=== PATIENT | female | born 1960 | race Caucasian/White ===

== ENCOUNTER 2023-10-30 16:13 | Outpatient (RCR) | payer BC, SELFPAY | END 2023-10-30 23:59 | disposition home or self-care (01) | LOC: CRHB 16:13 | PROVIDERS: ATTENDING PHYSICIAN Internal Medicine Cardiovascular Disease; FAMILY PHYSICIAN Nurse Practitioner Adult Health | DX: Z95.4 Presence of other heart-valve replacement (principal) | CPT/HCPCS: 93797; 93798 ==

== ENCOUNTER 2023-11-20 16:39 | Emergency (ER) | payer BC, SELFPAY ==
[2023-11-20] VITALS (11 sets, daily range): BP systolic 101–127; BP diastolic 65–82; BMI 19.7
[2023-11-20 17:04] LABS: % Basophils 1.7 % (0-2); % Eosinophils 8.1 % (0-6); % Immature Granulocytes 0.1 % (0-0.5); % Lymphocytes 33.2 % (20.5-51.1); % Monocytes 10.9 % (1.7-9.3); Absolute Basophils 0.1 10^3/uL (0-0.2); Absolute Eosinophils 0.7 10^3/uL (0-0.7); Absolute Lymphocytes 2.7 10^3/uL (1.2-3.4); Absolute Monocytes 0.9 10^3/uL (0.1-0.6); Absolute Neutrophils 3.8 10^3/uL (1.4-6.5); Hematocrit 39.5 % (37.0-47.0); Hemoglobin 12.3 g/dL (12.0-16.0); Mean Corp Hgb Conc. 31.1 g/dL (33.0-37.0); Mean Corpuscular Hgb 26.8 pg (27.0-31.0); Mean Corpuscular Volume 86.1 fL (81.0-99.0); Mean Platelet Volume 9.2 fL (7.4-10.4); Nucleated Red Blood Cells % 0 %; Platelet Count 386 10^3/uL (130-400); Red Blood Cell Count 4.59 10^6/uL (4.20-5.40); Red Cell Dist. Width 15.6 % (11.5-14.5); White Blood Cell Count 8.3 10^3/uL (4.8-10.8)
[2023-11-20 17:16] LABS: ALT (SGPT) 66 U/L (0-35); AST (SGOT) 73 U/L (14-36); Albumin 4.5 g/dl (3.5-5.0); Alkaline Phosphatase 142 U/L (38-126); Blood Urea Nitrogen 24 mg/dl (7-17); Carbon Dioxide 26 mmol/L (22-30); Chloride 101 mmol/L (98-107); Glucose 86 mg/dl (70-99); Magnesium 1.9 mg/dl (1.6-2.3); Potassium 5.2 mmol/L (3.5-5.1); Sodium 134 mmol/L (135-145); Total Bilirubin 0.7 mg/dl (0.2-1.3); Total Protein 8.1 g/dl (6.3-8.2); eGFR > 60.00
[2023-11-20 17:22] LABS: NT-proBNP 233 pg/ml
--- NOTE | 2023-11-20 17:39 | ED.GENMED ---
History of Present Illness
General
Chief Complaint: Heart Rate Problem
Source: patient and spouse
Time Seen by Provider: 11/20/23 17:08
Travel History
Have you had any contact with someone who has COVID-19?: No
Do you have any symptoms of coronavirus? Fever > 100 degrees, chills, cough, shortness of breath, sore throat, loss of taste or smell, muscle aches, or headache?: No
History of Present Illness
History of Present Illness:
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 She was at cardiac rehab today and after she got off the treadmill was noted to have a heart rate of
145. She got on the bike and her heart rate was 175. She was noted to be in A-fib. Patient had an episode of A-fib postoperatively briefly but otherwise no prior history. She says she feels 'fine'. She denies dyspnea, dizziness, chest pain or
pressure, palpitations, fever, chills, nausea, vomit, abdominal pain, neck pain, leg swelling, or other complaints. Patient is not anticoagulated.
Past History
Past History
ED Past Surgical History: Cardiac
Social History
Tobacco: Non-smoker
Alcohol: None
Drug: None
Personal:
Living: with family
Phy Exam
Physical Exam
Physical Exam:
GENERAL: Alert , in no apparent distress
EYE: pupils equal and reactive
NECK: Supple, no significant adenopathy.
ENT: o/p clr, mmm.
CARDIAC: Irregularly irregular, tachycardic
LUNGS: Clear breath sounds bilaterally, no acute respiratory distress,
ABDOMEN: Soft, without focal tenderness, no r/g, no cvat
NEUROLOGICAL: Alert and oriented, no focal neuro deficits
SKIN: Warm and dry, skin intact.
MUSCULOSKELETAL: No edema, well perfused.
PSYCH: Normal and appropriate interaction.
Scores
[id number] Score for Afib Stroke Risk
Age in Years (65=0, 65-74=1, >/=75=2): <65
Sex (Female=+1): Female
Congestive Heart Failure History (Yes=+1): Yes
Hypertension History (Yes=+1): No
Stroke/TIA/Thromboembolism History (Yes=+2): No
Vascular Disease History (Yes=+1): No
Diabetes Mellitus (Yes=+1): No
Score: 2
Anticoagulation Recommendations: Recommend anticoagulation (as validated in nonvalvular fib)
Course
Orders/Labs/Results
Orders:
Orders
11/20/23 16:47
Electrocardiogram (*1) Urgent
Reason for Study: Bradycardia / Tachycardia
EKG- Treatment ONCE
CR Chest - 2 Views Urgent
Comment:
Reason For Exam: tachycardia
11/20/23 16:53
Complete Blood Count/With Diff Urgent
Comprehensive Metabolic Panel Urgent
Free T4 Urgent
Magnesium Urgent
NT-proBNP Urgent
TSH Reflex To Free T4 Urgent
11/20/23 17:26
Diltiazem HCl [Cardizem] 20 mg IV NOW STA
11/20/23 17:44
Diltiazem HCl [Cardizem] 25 mg .ROUTE .STK-MED ONE
11/20/23 18:29
Diltiazem HCl [Cardizem] 25 mg IV NOW STA
11/20/23 18:44
0.9% Sodium Chloride 500 ml [Nss] 500 ml IV BOLUS
11/20/23 18:45
Apixaban [Eliquis] 5 mg PO NOW STA
Diltiazem [Cardizem] 60 mg PO NOW STA
11/20/23 19:03
Digoxin [Lanoxin] 250 mcg PO NOW STA
11/20/23 20:18
ECG [Electrocardiogram (*1)] Stat
Reason for Study: Palpitations
EKG- Treatment ONCE
Abnormal Lab Results
11/20/23
16:53
MCH 26.8 L pg
(27.0-31.0)
MCHC 31.1 L g/dL
(33.0-37.0)
RDW 15.6 H %
(11.5-14.5)
Absolute Monos (auto) 0.9 H 10^3/uL
(0.1-0.6)
Monocytes % 10.9 H %
(1.7-9.3)
Eosinophils % 8.1 H %
(0-6)
Sodium 134 L mmol/L
(135-145)
Potassium 5.2 H mmol/L
(3.5-5.1)
BUN 24 H mg/dl
(7-17)
AST 73 H U/L
(14-36)
ALT 66 H U/L
(0-35)
Alkaline Phosphatase 142 H U/L
(38-126)
TSH (Reflex) 0.23 L uIU/ml
(0.47-4.68)
11/20/23 16:53
11/20/23 16:53
Vital Signs
Initial and Last Documented VS:
Initial Vital Signs
Temp Pulse Resp BP Pulse Ox
97.8 F 129 20 127/77 98
11/20/23 16:42 11/20/23 16:42 11/20/23 16:42 11/20/23 16:42 11/20/23 16:42
Last Documented Vital Signs
Temp Pulse Resp BP Pulse Ox
97.8 F 92 19 111/67 96
11/20/23 16:42 11/20/23 20:45 11/20/23 20:45 11/20/23 20:30 11/20/23 20:45
*Critical Care Note
Total Time (30-74mins, 75-104mins- exclusive of procedures): Not Applicable
Update Note
Update Note:
Patient presents to the Emergency Department with _tachycardia
Number and Complexity of Problems Addressed at the Encounter
� Chronic conditions affecting care:
� Acute Exacerbation and/or Progression of Chronic Illness:
� Differential Diagnosis includes: But not limited to electrolyte disorder, sepsis, ACS, etc.
Amount and/or Complexity of Data to be Reviewed and Analyzed
� I performed an independent evaluation of and my interpretation is:
EKG: Read by me, tachycardia, A-fib, no acute ischemia
CT:
Xrays: Read by me, status post valve replacement, sternotomy wires noted, questionable atelectasis at right base
Laboratory Studies: Mild potassium elevation, nonspecific BUN elevation, blood sugar normal, nonspecific LFT elevation
Other:
� Review of other/old records reveals:
� Clinical information was obtained by an independent historian: who is bedside
� Prescriptions/Medications Considered but not given:
� Further testing considered but not performed:
Risk of Complications and/or Morbidity or Mortality of Patient Management
� Social determinants of health affecting care:
� Discussion with other providers (PCP, Hospitalists, Consultants, etc):
� Escalation of care including admission/observation vs risk of discharge considered: Case discussed with manager of pharmacy from [facility]� Aware of history, physical, etc. Agrees with anticoagulation. Agrees that patient is not
a candidate for cardioversion here given patient is asymptomatic with A-fib and unclear exactly how long she was in it. We will continue to attempt rate control. He is aware of the Cardizem that I gave recommends 0.25 mg of digoxin,'s IV fluids
and reevaluation. Patient updated.
8:21 PM reassessment, patient appears to be in a normal sinus rhythm. We will get a repeat ECG to confirm. Patient asymptomatic and stable. Plan is to prescribe DOAC, prompt cardiology follow-up regarding guidance of how long to continue DOAC,
further medication additions, etc. Discussed with patient importance of follow-up and reasons return to the ER
ED Attending Note
-
Portions of this chart may have been created with voice recognition software.� Occasional wrong word or��sound alike� substitutions may have occurred due to the inherent limitations of voice recognition software.
Discharge Plan
Departure
Patient Disposition: Home (Routine Discharge)
Date of Disposition: 11/20/23
Time of Disposition: 20:19
Patient with high blood pressure during this ER visit?: No
Condition: Good
Discharge Problem:
Atrial fibrillation
Instructions: Atrial Fibrillation (DC)
Prescriptions:
New
Eliquis 5 mg tablet
5 mg PO BID Qty: 60 0RF
No Action
simvastatin 20 mg Tablet
20 mg PO DAILY
aspirin 81 mg Capsule
81 mg PO DAILY
Referrals:
Marge Cullen CRNP [Family Provider] -
Activity Restrictions/Additional Instructions:
PLEASE FOLLOW-UP WITH YOUR HEARING THERAPIST THIS WEEK. YOU WILL NEED TO CONSIDER MEDICATION CHANGES/ADDITIONS, AND FURTHER EVALUATION. IF YOU DEVELOP DIZZINESS, CHEST PAIN, PALPITATIONS, SHORTNESS OF BREATH, OR OTHER WORRISOME SIGNS, PLEASE RETURN TO
THE ER IMMEDIATELY.
Interventions
Interventions:
*Risk Screen - Suicide Last Done: 11/20/23 16:42
*General Assessment Last Done: 11/20/23 16:42
*Neglect/Abuse Screening Last Done: 11/20/23 16:42
ED- Fall Risk Assessment Last Done: 11/20/23 17:27
*ED COVID-19 Vaccine History Last Done: 11/20/23 17:27
*Nursing Disposition Last Done: 11/20/23 20:51
ED- Cardiac Assessment Last Done: 11/20/23 17:27
ED- Pulmonary Assessment Last Done: 11/20/23 17:27
Discharge Date and Time
Discharge Date/Time: 11/20/23 21:01
[2023-11-20] MEDS: CARDIZEM 20 MG IV (17:44)
[2023-11-20 17:52] LABS: TSH Reflex To Free T4 0.23 uIU/ml (0.47-4.68)
[2023-11-20 18:23] LABS: Free T4 1.79 ng/dl (0.78-2.19)
[2023-11-20] MEDS: CARDIZEM 25 MG IV (18:29)
[2023-11-20] MEDS: NSS 500 IV (19:14)
[2023-11-20] MEDS: ELIQUIS 5 MG PO (19:17)
[2023-11-20] MEDS: CARDIZEM 60 MG PO (19:17)
[2023-11-20] MEDS: LANOXIN 250 MCG PO (19:18)
== END 2023-11-20 21:01 | disposition home or self-care (01) ==
LOC: EMR 16:39
PROVIDERS: EMERGENCY PHYSICIAN Emergency Medicine; FAMILY PHYSICIAN Nurse Practitioner Adult Health; OTHER PHYSICIAN Internal Medicine Cardiovascular Disease
DX: I48.91 Unspecified atrial fibrillation (principal)
CPT/HCPCS: 99284; 96374; 96375; 96361; 71046; 80053; 83735; 83880; 84439; 84443; 85025; 93005

== ENCOUNTER 2023-11-27 15:57 | Outpatient (RCR) | payer BC, SELFPAY | END 2023-11-27 23:59 | disposition home or self-care (01) | LOC: CRHB 15:57 | PROVIDERS: ATTENDING PHYSICIAN Internal Medicine Cardiovascular Disease; FAMILY PHYSICIAN Nurse Practitioner Adult Health | DX: Z95.4 Presence of other heart-valve replacement (principal) | CPT/HCPCS: 71046; 80053; 83735; 83880; 84439; 84443; 85025; 93005; 93798 ==

== ENCOUNTER 2025-08-23 06:53 | Day surgery (SDC) | payer BC, SELFPAY | END 2025-08-23 10:05 | disposition home or self-care (01) | LOC: CATH 06:53 | PROVIDERS: ATTENDING PHYSICIAN Nuclear Medicine Nuclear Cardiology; FAMILY PHYSICIAN Nurse Practitioner Family; OTHER PHYSICIAN Internal Medicine Cardiovascular Disease | DX: I48.0 Paroxysmal atrial fibrillation (principal); I34.0 Nonrheumatic mitral (valve) insufficiency; I50.9 Heart failure, unspecified; R18.8 Other ascites; R05.3 Chronic cough; R79.89 Other specified abnormal findings of blood chemistry; Z79.899 Other long term (current) drug therapy; Z79.01 Long term (current) use of anticoagulants; I70.0 Atherosclerosis of aorta; E78.5 Hyperlipidemia, unspecified; I47.20 Ventricular tachycardia, unspecified; I77.74 Dissection of vertebral artery; Z90.711 Acquired absence of uterus with remaining cervical stump; D15.1 Benign neoplasm of heart; I45.81 Long QT syndrome | CPT/HCPCS: 93312; 93320; 93325 ==

== ENCOUNTER 2025-09-01 07:59 | Day surgery (SDC) | payer BC, SELFPAY ==
[2025-08-18 09:21] VITALS: BMI 22.1
[2025-08-18 09:57] LABS: Hematocrit 44.3 % (37.0-47.0); Hemoglobin 14.9 g/dL (12.0-16.0); Mean Corp Hgb Conc. 33.6 g/dL (33.0-37.0); Mean Corpuscular Volume 90.2 fL (81.0-99.0); Nucleated Red Blood Cells % 0 %; Platelet Count 275 10^3/uL (130-400); Red Cell Dist. Width 12.3 % (11.5-14.5)
[2025-08-18 10:17] LABS: INR 1.12; PT 14.9 Sec (11.4-14.6)
[2025-08-18 10:22] LABS: ALT (SGPT) 47 U/L (0-35); AST (SGOT) 45 U/L (14-36); Albumin 4.7 g/dl (3.5-5.0); Alkaline Phosphatase 94 U/L (38-126); Blood Urea Nitrogen 21 mg/dl (7-17); Calcium 9.9 mg/dl (8.4-10.2); Carbon Dioxide 29 mmol/L (22-30); Chloride 101 mmol/L (98-107); Estimated Creatinine Clearance 68 ml/min; Glucose 91 mg/dl (70-99); Magnesium 2.2 mg/dl (1.6-2.3); Potassium 4.2 mmol/L (3.5-5.1); Sodium 137 mmol/L (135-145); Total Protein 7.8 g/dl (6.3-8.2); eGFR > 60.00
[2025-09-01] VITALS (14 sets, daily range): BP systolic 85–108; BP diastolic 44–71
--- NOTE | 2025-09-01 07:35 | ITS.CL.ABL ---
Payroll And Benefits Analyst - Ablation
Ablation
Procedure Report:
ELECTROPHYSIOLOGIC STUDY AND POSSIBLE ABLATION
DATE: 09/01/25
Primary Care Provider: Dr Dontae Cerna
Primary Cooler Operator in [place],�Dr. Debbie Wayne.
INDICATION:
Symptomatic Atrial Fibrillation.
Paroxysmal
HISTORY: See H and P.
Symptomatic AF, poorly controlled with attempted medical therapy.
Her medical history includes�mitral valve repair April 2023�with Dr. Yip at [facility].� It is noted that she had a�complicated postoperative course with recurrent pleural effusions requiring thoracentesis.� There is
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
intravenous amiodarone.� It was noted that she then�developed QT interval prolongation along with nonsustained ventricular tachycardia and amiodarone was discontinued.
She has continued to have paroxysms of atrial fibrillation.� Atrial tachycardia is also described. �Symptomatic.
She tells me she was once again tried on amiodarone but poorly tolerated and subsequently tried on flecainide but this was ineffective.
Echocardiogram October 17, 2023 describing normal LVEF at 55 to 60%, mildly dilated left atrium as well as a hyper echogenic small round structure at the entrance of the right atrium which may represent the surgical patch.
SUKHDEEP 08/23/25 visualized the inferior vena cava as well as the superior vena cava entrances into the right atrium and there is no significant obstruction.
HAS-BLED: 1
Age
CHADSVASc: 2
Age (almost 65 yrs)
F Gender
PRESENTING RHYTHM: SR
HISTORY: See H and P.
Symptomatic AF, poorly controlled with attempted medical therapy.
ANTICOAGULATION: Apixaban 5 mg twice daily
'TIME-OUT': called and confirmed.
SEDATION/ANESTHESIA: provided via the anesthesia department using general anesthesia.
PROCEDURE:
Ultrasound Guidance with real-time visualization of needle insertion and vessel patency performed by me for femoral venous Vascular Access.
Under real-time US guidance, the needle was advanced with negative pressure into the vein. The needle was seen entering the vessel lumen with a good return of dark red flow, the syringe was removed, non-pulsatile, dark red blood low was noted and
the wire was passed without difficulty, then the needle was removed. US confirmed the wire was in the vein, not going into an artery,
Images were taken and saved for the patient's permanent record. Imaging findings typical femoral venous anatomy. Direct visualization of needle puncture into the femoral vein was observed and recorded.
A decapolar CS catheter was placed within the CS for mapping and pacing.
The intracardiac ultrasound catheter was positioned in the RA for continuous intracardiac ultrasound imaging.
Heparin bolus and infusion to target ACT at 300 -350 seconds was administered. Transseptal puncture was performed. This entailed advancing a sheath with dilator into the superior vena cava and withdrawing both (monitoring intracardiac ultrasound,
fluoroscopy and tip pressure) with the tip oriented toward the atrial septum. The fossa ovalis was engaged (indicated by sudden displacement of the sheath tip as well as tenting of the fossa seen on intracardiac ultrasound).
Transseptal puncture was performed. Left atrial catheter position was confirmed by echocardiographic imaging, pressure monitoring (LA mean pressure 11 mm Hg) and fluoroscopy. The sheath was advanced over the dilator and positioned in the left
atrium.
The Sphere 9 multipolar mapping/ablation Sphere-9 catheter was positioned through the transseptal sheath for high density mapping.
Geometry and voltage mapping was performed using the [employer] mapping system for three-dimensional electroanatomical mapping.
Catheter positioning was guided and confirmed using both I.C.E. and fluoroscopy.
High density electroanatomical three-dimensional mapping demonstrated four PVs: LSPV, LIPV, RSPV, RIPV.
Ablation strategy included PVI as well as mapping for extra PV contributors to atrial fibrillation which would also be targeted if present.
After accomplishing pulmonary venous isolation, mapping identified additional areas likely to be extra PV contributors to atrial fibrillation. These areas demonstrated patchy low voltage as well as complex fractionated electrograms. These areas can
be sites for the formation of rotors which can drive and maintain atrial fibrillation. These areas are known to be significant contributors to initiation and perpetuation of atrial fibrillation.
Additional energy applications/additional ablation sets targeted extra PV contributors to atrial fibrillation.
Targets for additional PFA ablation included:
LA posterior wall targeted with pulsed electric field energy isolating the posterior wall of the left atrium
After ablation of the posterior wall, additional targets were addressed:
LA inferior floor
These areas were ablated using pulsed electric field energy eliminating the extra PV contributors to atrial fibrillation.
Post ablation mapping finds entrance and exit block at each of the pulmonary veins, the LA posterior wall and at the additional a line at inferior/floor of the LA rendering the sites no longer able to contribute to atrial fibrillation.
Programmed electrostimulation including burst atrial pacing as well the delivery of decremental extrastimuli down to atrial effective refractory period and no sustained arrhythmias could be induced.
I.C.E. :
Pre-Ablation Post-Ablation
LVEF: 55 % 55 %
WMA: none none
Pericardial effusion: none none
LA Pressure (mmHg) 11 15
COMPLICATIONS:
None
SUMMARY:
- Mapping and ablation to isolate the PVs resulting in electrical isolation of the pulmonary veins
- Additional AF ablation sets X 2 after PVI (LA posterior wall, Inf/floor of the LA posterior wall) resulting in elimination of the targeted extra PV contributors to atrial fibrillation (Post wall, Inf LA floor)
- 3-D Electroanatomical Mapping
- Intracardiac Ultrasound
- Ultrasound guidance for vascular access
Post ablation, I discussed today's findings and results with the patient's , Iglesia.
RECOMMENDATIONS:
- Observe in monitored bed.
- Maintain oral anticoagulation.
- Office visit with YAMIL Argueta in 3 to 4 months
- Continue cardiovascular care with Dr. Debbie Wayne.
Copy to:
Primary Care Provider: Dr Dontae Cerna
Primary Cooler Operator in [place],�Dr. Debbie Wayne.
[2025-09-01] MEDS: NSS 500 IV (08:40)
[2025-09-01 10:49] LABS: ACT-LR - POC 252 Seconds (116-155)
[2025-09-01 11:05] LABS: ACT-LR - POC 310 Seconds (116-155)
[2025-09-01] MEDS: TYLENOL 650 MG PO (12:09)
--- NOTE | 2025-09-01 16:10 | W.PN.UPDATE ---
Update Note
Progress Note Update
64 yo WF s/p PVI (same day). She denies cp, sob, lupe diet, voiding, R fem site c/d/i no HT, soft, EKG SR with PVC's. She will resume Eliquis tonight. Activity restrictions reviewed. She will f/u Dr. Hugo in 3 mo. She is for d/c home after 430p if
groin stable
== END 2025-09-01 16:30 | disposition home or self-care (01) ==
LOC: CATH 07:59
PROVIDERS: ATTENDING PHYSICIAN Internal Medicine Cardiovascular Disease; FAMILY PHYSICIAN Nurse Practitioner Family; OTHER PHYSICIAN Internal Medicine Cardiovascular Disease
DX: I48.0 Paroxysmal atrial fibrillation (principal); I47.20 Ventricular tachycardia, unspecified; I34.0 Nonrheumatic mitral (valve) insufficiency; I45.81 Long QT syndrome; E78.5 Hyperlipidemia, unspecified; G43.909 Migraine, unspecified, not intractable, without status migrainosus; R79.89 Other specified abnormal findings of blood chemistry; I87.8 Other specified disorders of veins; I47.19 Other supraventricular tachycardia; I24.1 Dressler's syndrome; I49.3 Ventricular premature depolarization; I50.9 Heart failure, unspecified; I77.74 Dissection of vertebral artery; R18.8 Other ascites; Z79.01 Long term (current) use of anticoagulants; Z79.52 Long term (current) use of systemic steroids; Z79.899 Other long term (current) drug therapy; Z90.711 Acquired absence of uterus with remaining cervical stump
CPT/HCPCS: C1733; C1894; C1769; C1730; C1759; C1766; C1892; 36415; 75572; 80053; 83735; 85025; 85347; 85610; 86850; 86900; 86901; 93005; 93656; 93657; C1760; Q9967